=== PATIENT | male | born 1950 | race Caucasian/White ===

== ENCOUNTER 2019-12-13 21:13 | Inpatient (IN) | payer MEDICARE, SELFPAY ==
--- NOTE | 2019-12-13 21:18 | XR_ITS ---
WS: [id number] PORTABLE CHEST HISTORY: cp COMPARISON: None available. Moderate pulmonary hyperinflation. No pneumonia or vascular congestion. No pleural effusion or pneumo thorax. Cardiac size: Normal. Mediastinum/Aorta: Normal mediastinum. No osseous abnormality seen. XR/XR chest 1V portable [id number] IMPRESSION: Chronic emphysema. No pneumonia.
[2019-12-13 21:35] VITALS: BP 143/88; PULSE 77; RESP 16; TEMP 36.8; O2SAT 98; BMI 22.4
[2019-12-13 22:02] LABS: INR 0.94 (0.8-1.2)
[2019-12-13 22:03] LABS: Basophils # 0.1 10^3/uL (0.0-0.1); Eosinophils # 0.2 10^3/uL (0.0-0.8); Eosinophils % 1.9 %; Hematocrit 46.4 % (42.0-52.0); Hemoglobin 15.5 g/dL (11.7-16.6); Lymphocytes # 2.6 10^3/uL (0.8-4.8); Lymphocytes % 28.7 %; Mean Corpuscular HGB Conc 33.4 g/dL (30.0-36.0); Mean Corpuscular Volume 92.8 fL (80-94); Mean Platelet Volume 10.2 fL (7.4-10.4); Monocytes # 0.6 10^3/uL (0.2-0.9); Monocytes % 6.9 %; Neutrophils # 5.5 10^3/uL (1.8-7.7); Neutrophils % 61.2 %; Nucleated Red Blood Cells % 0 %; Platelet Count 240 10^3/cmm (130-400); Red Cell Distribution Width 12.7 % (12.1-15.1); White Blood Count 8.9 10^3/uL (4.0-10.0)
[2019-12-13 22:09] LABS: Alanine Aminotransferase 16 U/L (0-41); Albumin Level 4.6 g/dL (3.5-5.2); Alkaline Phosphatase 63 IU/L (40-130); Anion Gap 17.4 (5-19); Aspartate Amino Transferase 19 U/L (0-40); Blood Urea Nitrogen 20 mg/dL (8-23); Calcium 8.7 mg/dL (8.5-10.5); Carbon Dioxide 22 mmol/L (22-29); Chloride 101 mmol/L (98-107); Globulin 2.4 g/dL (1.3-4.6); Glomerular Filtration Rate 60.2 mL/min (90-130); Glucose 134 mg/dL (65-115); Osmolality Calculated 281 mOsm/kg (285-295); Potassium 4.4 mmol/L (3.5-5.1); Sodium 136 mmol/L (136-145); Total Bilirubin 0.2 mg/dL (0.15-1.2)
[2019-12-13 22:17] LABS: Troponin(5th) Baseline 25 ng/mL (0-15)
[2019-12-13 22:27] VITALS: BP 130/80; PULSE 76; RESP 14; O2SAT 97
--- NOTE | 2019-12-13 22:32 | W.ED.CHESTPA ---
HPI - Chest Pain General: Chief Complaint: Chest Pain Stated Complaint: cp Time Seen by Provider: 12/13/19 21:15 Source: patient Mode of arrival: ambulatory Limitations: no limitations History of Present Illness: HPI narrative: Patient comes in with occasional chest pain on and off for the last 2 to 3 weeks. Patient states at first the chest pain came on with exertion, but the last 2 days he has had chest pain at rest and at exertion. Patient has a history of high blood pressure and high cholesterol. Patient reports this evening his pain was worse and he needed to have it checked out. Patient stop smoking 2 months ago. Patient has no prior cardiac work-up. Review of Systems General: Reports: 10 or more systems reviewed and unremarkable except in HPI and below Card: Reports: chest pain PFSH ED PFSH: Social History Smoking and tobacco status: former smoker Physical Exam Const: COMMON NORMALS: no acute distress and patient oriented x3 GENERAL APPEARANCE: cooperative HENMT: COMMON NORMALS: normocephalic, TM's normal bilaterally and Normal external nose present HEAD & SCALP: normal to inspection and normocephalic NOSE: Normal external nose present TYMPANIC MEMBRANE: TM's normal bilaterally MOUTH: Normal oral and palatal mucosa present THROAT: posterior oropharynx normal Eye: GENERAL EYE: appearance normal, both eyes and all related structures Neck/C-Spine: COMMON NORMALS: full ROM Lymph: LYMPHATIC: no lymphadenopathy noted Chest: COMMONS NORMALS: normal inspection of the chest Resp: COMMON NORMALS: normal respiratory effort EFFORT & INSPECTION: Yes able to speak in complete sentences Cardio: COMMON NORMALS: regular rate and regular rhythm RATE: regular rate RHYTHM: regular rhythm GI: COMMON NORMALS: non-tender : COMMON NORMALS: Yes no CVA tenderness BLADDER/KIDNEY EXAM: Yes no CVA tenderness Back/Pelvis: COMMON NORMALS: no CVA tenderness and thoracic and lumbar spine normal to inspection Extremity: COMMON NORMALS: normal to inspection Neuro: COMMON NORMALS: patient oriented x3 and moves all extremities Psych: COMMON NORMALS: mental status grossly normal and cooperative Skin: COMMON NORMALS: no rashes or lesions noted GENERAL SKIN EXAM: no rashes or lesions noted Course ED course: 2350, second troponin went up to 30 from 25, patient does admit that he is pain-free at this time. History is concerning for CAD with worsening symptoms over the last [address] Osborn who agreed the patient probably needed to be admitted observation with cardiology follow-up and stress test. Vital Signs: Vital signs: Vital Signs Temperature 98.2 F 12/13/19 21:35 Pulse Rate 62 12/13/19 23:27 Respiratory Rate 15 12/13/19 23:27 Blood Pressure 110/74 12/13/19 23:27 Pulse Oximetry 97 12/13/19 23:27 MDM - Chest Pain MDM Narrative: Medical decision making narrative: Patient comes in today for complaints of increasing chest discomfort over the last 10 days. Patient has a history of hypertension, hyperlipidemia, and smoking. Patient takes routinely lisinopril and atorvastatin. Patient appears in mild to moderate pain. Patient was given 1 inch of Nitropaste, 281 mg aspirin, and 2 mg of morphine with resolution of pain. Laboratory values noted a increase in troponin at the 2-hour lori. Remainder of labs were within normal limit. Chest x-ray was normal. Patient's heart score was 6. Patient was concerned concern for deterioration of condition and needs admission for observation to cardiac stepdown unit. Dr. Gabriel was consulted for hospitalist admission. Dr. Osborn was consulted in the ER and agreed with plan. Lab Data: Labs: Lab Results 12/13/19 12/13/19 12/13/19 Range/Units 21:38 21:38 21:38 WBC 8.9 (4.0-10.0) 10^3/ uL RBC 5.00 (4.1-5.3) 10^6/u L Hgb 15.5 (11.7-16.6) g/dL Hct 46.4 (42.0-52.0) % MCV 92.8 (80-94) fL MCH 31.0 (28.0-34.0) pg MCHC 33.4 (30.0-36.0) g/dL RDW 12.7 (12.1-15.1) % Plt Count 240 (130-400) 10^3/c mm MPV 10.2 (7.4-10.4) fL Neut % (Auto) 61.2 % Lymph % (Auto) 28.7 % Archuleta % (Auto) 6.9 % Eos % (Auto) 1.9 % Baso % (Auto) 1.0 % Neut # (Auto) 5.5 (1.8-7.7) 10^3/u L Lymph # (Auto) 2.6 (0.8-4.8) 10^3/u L Archuleta # (Auto) 0.6 (0.2-0.9) 10^3/u L Eos # (Auto) 0.2 (0.0-0.8) 10^3/u L Baso # (Auto) 0.1 (0.0-0.1) 10^3/u L Nucleated RBC % (a uto) 0 % Nucleated RBCs # 0.0 /100WBC PT 12.90 (10.5-13.3) SECO NDS INR 0.94 (0.8-1.2) Sodium 136 (136-145) mmol/L Potassium 4.4 (3.5-5.1) mmol/L Chloride 101 (98-107) mmol/L Carbon Dioxide 22 (22-29) mmol/L Anion Gap 17.4 (5-19) BUN 20 (8-23) mg/dL Creatinine 1.2 (0.7-1.2) mg/dL GFR Calculation 60.2 L (90-130) mL/min Glucose 134 H (65-115) mg/dL Calculated Osmolal ity 281 L (285-295) mOsm/k g Calcium 8.7 (8.5-10.5) mg/dL Total Bilirubin 0.2 (0.15-1.2) mg/dL AST 19 (0-40) U/L ALT 16 (0-41) U/L Alkaline Phosphata se 63 (40-130) IU/L Troponin T Baselin e (0-15) ng/mL Troponin T 120 Min table mountain (0-15) ng/mL Delta Troponin T (0-10) ABS# Total Protein 7.0 (6.6-8.7) g/dL Albumin 4.6 (3.5-5.2) g/dL Globulin 2.4 (1.3-4.6) g/dL 12/13/19 12/13/19 Range/Units 21:38 23:26 WBC (4.0-10.0) 10^3/ uL RBC (4.1-5.3) 10^6/u L Hgb (11.7-16.6) g/dL Hct (42.0-52.0) % MCV (80-94) fL MCH (28.0-34.0) pg MCHC (30.0-36.0) g/dL RDW (12.1-15.1) % Plt Count (130-400) 10^3/c mm MPV (7.4-10.4) fL Neut % (Auto) % Lymph % (Auto) % Archuleta % (Auto) % Eos % (Auto) % Baso % (Auto) % Neut # (Auto) (1.8-7.7) 10^3/u L Lymph # (Auto) (0.8-4.8) 10^3/u L Archuleta # (Auto) (0.2-0.9) 10^3/u L Eos # (Auto) (0.0-0.8) 10^3/u L Baso # (Auto) (0.0-0.1) 10^3/u L Nucleated RBC % (a uto) % Nucleated RBCs # /100WBC PT (10.5-13.3) SECO NDS INR (0.8-1.2) Sodium (136-145) mmol/L Potassium (3.5-5.1) mmol/L Chloride (98-107) mmol/L Carbon Dioxide (22-29) mmol/L Anion Gap (5-19) BUN (8-23) mg/dL Creatinine (0.7-1.2) mg/dL GFR Calculation (90-130) mL/min Glucose (65-115) mg/dL Calculated Osmolal ity (285-295) mOsm/k g Calcium (8.5-10.5) mg/dL Total Bilirubin (0.15-1.2) mg/dL AST (0-40) U/L ALT (0-41) U/L Alkaline Phosphata se (40-130) IU/L Troponin T Baselin e 25 H (0-15) ng/mL Troponin T 120 Min table mountain 30.57 H (0-15) ng/mL Delta Troponin T 5.57 (0-10) ABS# Total Protein (6.6-8.7) g/dL Albumin (3.5-5.2) g/dL Globulin (1.3-4.6) g/dL EKG Data^: EKG 1: Attestation: I personally reviewed and interpreted this EKG as follows: (1038, sinus rhythm with a rate of 76 and regular. No ectopy, no ST elevation.) Discharge Plan Discharge Prescriptions: No Action atorvastatin 10 mg tablet RF: 0 lisinopril 10 mg tablet RF: 0 Coding Level of Care Code ED Talent Acquisition Specialist for Matt Fwd Exam Comprehensive
[2019-12-13] MEDS: ondansetron 2 mg/ML SDV 2 mL 4 MG IVP (22:42)
[2019-12-13] MEDS: morphine 4 mg/mL SDV 1 mL 2 MG IVP (22:42)
[2019-12-13] MEDS: nitroglycerin 1 gm/inch oint Pkt 1 INCH TOPICAL (22:42)
--- NOTE | 2019-12-13 23:19 | ECG_ITS ---
Measurements Intervals [place] Rate: 83 P: 61 HI: 232 QRS: 71 QRSD: 107 T: 79 QT: 374 QTc: 440 SINUS RHYTHM WITH FIRST DEGREE AV BLOCK SEPTAL MYOCARDIAL INFARCTION , PROBABLY OLD [40+ ms Q WAVE IN V1/V2] ST DEPRESSION, CONSIDER SUBENDOCARDIAL INJURY [0.1+ mV ST DEPRESSION] No previous ECG available for comparison Electronically Signed On 12-14-2019 13:08:07 CDT by Jordon Marin M.D. [id number]
[2019-12-13 23:27] VITALS: BP 110/74; PULSE 62; RESP 15; O2SAT 97
[2019-12-13 23:49] LABS: Troponin 5 2HR 30.57 ng/mL (0-15); Troponin 5 2HR Delta 5.57 ABS# (0-10)
[2019-12-14] VITALS (10 sets, daily range): BP systolic 104–147; BP diastolic 64–85; PULSE 60–90; RESP 16–20; TEMP 36.4–36.7; O2SAT 95–98
--- NOTE | 2019-12-14 00:32 | PC.NURSE ---
EKG done at 0030 and shown to ER physician
[2019-12-14] MEDS: atorvastatin 40 mg Tablet 80 MG PO ×2 (01:02→21:48)
[2019-12-14] MEDS: enoxaparin 80 mg/0.8 mL Syringe SUBCUT ×2 (01:02→17:35)
--- NOTE | 2019-12-14 01:25 | PC.NURSE ---
Called report to Glenna on med-surg
--- NOTE | 2019-12-14 02:17 | PM.HP ---
Providers/Chief Complaint Admitting Physician: Easton Pan Primary Care Provider: Danica Martinez DO Chief Complaint: cp History of Present Illness Rudolph Card is a 69 year old male with past medical history of hypertension and dyslipidemia who is presenting with substernal chest pain. He reports that the pain started about 2 weeks ago. It is intermittent. Triggered by physical activities. It became gradually more frequent. Last couple of days he experienced the pain even without exertion. It is moderate to severe intensity. Radiates to both upper extremities. Associated with diaphoresis. Denies palpitations or shortness of breath. Denies similar episodes in the past. Nitroglycerin in the emergency room provided significant relief of the pain. EKG shows inferolateral T wave inversion. Sinus rhythm. Troponin was mildly elevated. Currently the pain has resolved. Review of Systems General: Reports: 10 or more systems reviewed and unremarkable except in HPI and below Medications/Allergies Home Medications Medication Instructions Recorded Confirmed Last Taken Type atorvastatin 12/13/19 Unknown History lisinopril 12/13/19 Unknown History Allergies Allergy/AdvReac Type Severity Reaction Status Date / Time No Known Allergies Allergy Verified 12/13/19 21:43 PFSH Acute PFSH: Social History Smoking and tobacco status: former smoker Vitals/I&O/Wt Last Vital Signs Temp 98.0 F 12/14/19 02:00 Pulse 70 12/14/19 02:08 Resp 16 12/14/19 02:08 BP 130/78 12/14/19 02:08 Pulse Ox 98 12/14/19 02:08 Weight last 48 hrs Weight 74.843 kg Physical Exam Narrative: EXAM NARRATIVE: Awake alert oriented x3. No acute distress. Mood and affect are appropriate. Skin is warm and dry. Moist mucous membranes. Normal speech. No facial asymmetry. Eyes PERRLA, extraocular muscles intact. Neck supple. No JVD Lungs clear bilaterally. No respiratory distress Heart S1, S2, regular Abdomen soft, nontender, bowel sounds are present No edema cyanosis or calf tenderness bilaterally in extremities. Neuro examination is nonfocal. Data : 12/13/19 21:38 12/13/19 21:38 Other Labs: Chest x-ray. Based on my interpretation no acute cardiopulmonary abnormalities. Please see official radiology report when it is available. A&P Additional A&P Information 69-year-old male with past medical history of dyslipidemia and hypertension who is presenting with chest pain. The findings are consistent with acute coronary syndrome/unstable angina. The pain resolved with nitroglycerin. The patient received Lovenox and aspirin in the emergency room. His heart rate is on the lower side. This is the reason I am not giving him beta-deborah. He also received full dose of Lipitor. We will continue monitoring him on telemetry. We will monitor troponin level. Please consult cardiology in the morning. Probably he needs to go to cardiac lab. Hypertension. Currently well controlled. We will add as needed hydralazine. Possible chronic kidney disease stage II. We will hydrate him gently before possible cardiac catheterization. We will monitor his renal function. Dyslipidemia. Given Lipitor 80. Will check fasting lipids in the morning. DVT prophylaxis. Received full dose of Lovenox in the ER. Teds and SCDs. CODE STATUS. The patient wants to be full code. The plan of care was discussed with the patient. He verbalized understanding and agreement. Attestations Medical Necessity Statement*: Observation Coding Level of Care Code Acute Child Welfare Caseworker for Matt Bryant
[2019-12-14] MEDS: sodium chloride 0.9% 1,000 ML 60 ML IV (02:39)
--- NOTE | 2019-12-14 03:19 | ECG_ITS ---
Measurements Intervals [place] Rate: 68 P: 70 CO: 138 QRS: 58 QRSD: 92 T: -32 QT: 422 QTc: 452 SINUS RHYTHM POSSIBLE LATERAL MYOCARDIAL INFARCTION , OF INDETERMINATE AGE [30 ms Q WAVE IN I/aVL/V5/V6] PROBABLE INFERIOR MYOCARDIAL INFARCTION , OF INDETERMINATE AGE WITH POSTERIOR EXTENSION [35 ms Q WAVE IN II/aVFPROMINENT R WAV No previous ECG available for comparison Electronically Signed On 12-14-2019 13:08:14 CDT by Jordon Marin M.D. [id number]
[2019-12-14 04:48] LABS: Estmated Average Glucose 134; Hemoglobin A1C 6.3 % (4.0-6.0)
[2019-12-14 04:59] LABS: Magnesium 2.2 mg/dL (1.7-2.3); Phosphorus 3.7 mg/dL (2.5-4.5); Troponin 5 6HR 32.32 ng/mL (0-15); Troponin 5 6HR Delta 7.32 ng/L (0-12)
[2019-12-14 05:00] LABS: Chol HDL Ratio 3.63 mg/dL (1.0-5.00); Cholesterol 178 mg/dL (0-200); HDL Cholesterol 49 mg/dL (60-100); LDL Cholesterol Calculated 105 mg/dL (50-129); LDL HDL Ratio 2.14 RATIO (0.00-3.22); Triglycerides 122 mg/dL (0-150)
--- NOTE | 2019-12-14 07:54 | NMCV_ITS ---
NM lv perf SPECT r/s* [id number] Rudolph Card Age: 69 Gender: M : 1950 Exam Date: 12/14/2019 10:23 Ordering Phys: Liza Leyva MD Technologist: BEATRICE Patel Exam Location: [facility] Indications: Chest pain STRESS TEST Please [facility] IMAGE PROTOCOL Rest/Stress 1 Lexiscan Day Radiopharmaceutical Dose (mCi) Administration Site Administered by Rest: Tc-99m 10.5 IV BEATRICE Patel Sestamibi Stress:Tc-99m 32.0 IV BEATRICE Patel Sestamibi Rest: 14-Dec-2019 60 Discovery 630 Stress: 14-Dec-2019 45 Discovery 630 0.4mg Lexiscan. Images obtained in supine and prone position. SPECT RESULTS Technical Quality: Good Raw Data Analysis: Subdiaphragmatic activity Image Corrections: No attenuation or motion correction applied Summed Stress Score: 37 Summed Rest Score: 22 Summed Difference Score: 16 PERFUSION FINDINGS Large area of severely decreased tracer uptake was noted in the inferior, inferolateral, anterolateral and all the apical segments. Moderate area decreased tracer uptake was noted in the mid anteroseptal and inferoseptal segments. Significant areas of reversibility was noted in all the segments. FUNCTIONAL RESULTS (calculated via Gated SPECT) Stress Image LV EF (%): 30 Stress EDV (mL):152 TID: 1.38 Stress ESV (mL):107 FUNCTIONAL FINDINGS: Segmental wall motion analysis revealed diffuse hypokinesia of the left ventricle. IMPRESSIONS 1. Myocardial perfusion imaging revealing large areas of severely decreased tracer uptake with significant reversibility, suggestive of ischemia in the distribution of all the 3 coronary arteries. 2. Diminished LV ejection fraction of 30%. 3. Multiple wall motion abnormalities as mentioned above 4. Moderately dilated LV cavity with an end systolic volume of 107 mL 5. Elevated transient ischemic dilatation ratio also is suggestive of endocardial ischemia Dr. Leyva was informed about these findings Dr Pedro Luis Hodges MD [facility] (Electronically Signed) Final Date: 14 Dec 2019 14:26 S
--- NOTE | 2019-12-14 07:54 | ECG_ITS ---
NAME OF STUDY: LEXISCAN SESTAMIBI STRESS TEST INDICATION: Chest Pain suspicious for Unstable Angina PROCEDURE: At the baseline, the blood pressure was 153/83 mmHg, oxygen saturation 99% with a heart rate of 77 bpm. The electrocardiogram showed normal sinus rhythm, normal axis with nonspecific ST-T wave abnormality in lead III, aVF, V4 to V6. The Lexiscan was infused over a period of 20 seconds. A total of 0.4 milligrams of Lexiscan was infused. The stress phase was continued for a total of 5 minutes. Heart rate at the end of the stress phase was 97 bpm, oxygen saturation 99% with a blood pressure 151/81 mmHg. The EKG at the peak infusion revealed sinus rhythm. T wave is noted to be upright during infusion and at peak stress. Sestamibi was injected 20 seconds after the Lexiscan infusion. Blood pressure at the end of the recovery phase was 147/83 mmHg, oxygen saturation 99% with a heart rate of 87 beats per minute. CONCLUSION: 1. No significant EKG changes with the LexiScan infusion. 2. No LexiScan induced chest pain or cardiac arrhythmia. 3. Normal blood pressure and heart rate response. 4. Sestamibi/sestamibi perfusion scan pending; see separate report. Electronically Signed On 12-14-2019 15:55:20 CDT by Georgiana Alejandro M.D. [id number]
--- NOTE | 2019-12-14 09:41 | PC.CHAP ---
Pastoral Care Encounter/Spiritual Assessment Type of Contact [] Declined publications production supervisor visit [] Patient/Family/Request visit [] Outpatient visit [] Follow-up visit [] Physician referral [] Code/Alert [x] Routine visit [] Staff referral [] Actively dying [] Patient sleeping [] Family support [] [] Out of room [] Palliative care [] [] Receiving care in room [] Pre-surgical visit [] Trauma [] Long length of stay [] ICU visit [] Other: Relational/Emotional Strength [] Patient feels connected with others/family/visitors/staff [] Distress [] Loneliness/isolation [] Abandonment Spirituality of Patient [] Person of Sunitha [] Attends Confucianism of their Sunitha [] Believes in Prayer [] Reads Bible or Restoration materials [] There are Spiritual issues to be addressed Valve Tester Interventions [x] Prayer [] Active listening [] Non-anxious presence [] Spiritual/emotional support [] Crisis/trauma care [] Spiritual counseling [] Bereavement support [] Provided bereavement packet [] Provided Bible/devotional materials [] Provided toy/stuffed animal, coloring book to patient or family member [] Provided Communion [] Anointing/[place] [] Salvation [x] Completed spiritual assessment [] Other: Impact on Illness or Injury [] Angry [] Fearful [] Anxious [] Often cries [] Exhaustion [] Unable to work [] Unable to attend judaism [] Unable to walk/stand [] Unable to read [] Unable to drive [] Unable to eat/drink [] Unable to sleep [] Unable to be with family [] Patient intubated [] Other: Summary Patient resting well.. Time spent with patient 5 min
--- NOTE | 2019-12-14 11:25 | SUR.PREOP ---
Patient reports no pain or discomfort prior to the start of the test.d
[2019-12-14] MEDS: regadenoson 0.4 Mg/5 ml Syringe IVP (11:31)
--- NOTE | 2019-12-14 14:34 | P.PN_ITS ---
Subjective Subjective: Interval history: Patient underwent stress testing this morning. Dr. Hodges called me. Test reveals evidence of three-vessel disease. Vitals/I&O/Wt Last Vital Signs Temp 97.5 F L 12/14/19 07:13 Pulse 90 12/14/19 11:35 Resp 18 12/14/19 07:13 BP 147/83 12/14/19 11:35 Pulse Ox 96 12/14/19 07:13 12/13/19 12/14/19 12/14/19 22:59 06:59 14:59 Intake Total 1200 / 1200 Output Total 475 / 475 500 / 500 Balance -475 / -475 700 / 700 Weight last 48 hrs Weight 74.843 kg Physical Exam Const: OTHER: Alert and oriented x3 HENMT: OTHER: Normocephalic Eye: OTHER: Extraocular movements intact Chest: OTHER: Pectus excavatum Resp: OTHER: Clear to auscultation bilaterally Cardio: OTHER: Regular rate and rhythm GI: OTHER: Soft, nontender, positive bowel sounds Extremity: OTHER: No edema Skin: OTHER: Dry, no rashes noted Data : 12/13/19 21:38 12/13/19 21:38 A&P Assessment and plan (1) Unstable angina: Status: Acute (2) Positive cardiac stress test: Status: Acute (3) Hypertension: Status: Acute Qualifiers: Hypertension type: essential hypertension Qualified Code(s): I10 - Essential (primary) hypertension (4) Dyslipidemia: low hdl Status: Acute (5) Elevated hemoglobin A1c: Status: Acute Additional A&P Information Change to inpatient status Discussed with Dr. Alejandro and plan is for cardiac catheterization in the morning And has been started on Statin therapy, beta-blockade, aspirin and nitroglycerin paste On treatment dose Lovenox Will hold off on initiating any hypoglycemic agents presently though will need to consider Add SCDs Reviewed plans with patient. He understands findings of stress test and concerns for possible coronary artery disease. Has no questions presently. Full code Attestations Medical Necessity Statement*: With positive stress test will change to inpatient as stay will exceed 2 midnights Coding Level of Care Code Acute Activities Director Scouting for [facility] Fwd Diagnoses Unstable angina I20.0 Positive cardiac stress test R94.39 Hypertension I10 Hypertension type: essential hypertension Dyslipidemia E78.5 Elevated hemoglobin A1c R73.09
--- NOTE | 2019-12-14 15:56 | P.CONIM_ITS ---
Providers/Reason For Consult Consulting Physican/Specialty*: Dr. Alejandro, cardiology Reason for Consult*: Chest pain and abnormal stress test Attending Physician: Liza Leyva MD Primary Care Provider: Danica Martinez DO History of Present Illness History of Present Illness Rudolph Card is a 69 year old male with past medical history of hypertension, dyslipidemia and former smoker smoker (half pack per day since the age of 19 years states quit smoking to 3 months back) presented for evaluation of chest discomfort on and off for past 1 to 2 weeks. He was in his usual state of health until about 2 weeks back when he started having retrosternal chest pressure while working in his yard that lasted for few minutes and got relieved with resting. Over the past week he noticed the intensity of pain getting worse and it was associated with sweating. 2 nights in in a row patient experienced retrosternal chest discomfort described as heaviness and pressure-like sensation 7-8 over 10 in intensity with radiation to bilateral arm and associated with shortness of breath and sweating. The first night the pain resolved after he took some Prilosec. Yesterday night pain lasted about 10 minutes but it came back again and that is when patient decided to come to the ER for further evaluation. His baseline troponin was 25, 120-minute troponin T was 31 and 6 are troponin I was 32. Total cholesterol 178, calculated LDL 105, HDL 49 and triglyceride 132. His creatinine on arrival was 1.2 hemoglobin A1c of 6.3 normal electrolytes and liver function. Chest x-ray showed changes consistent with chronic emphysema otherwise no acute abnormality. He underwent stress test this morning that was abnormal and hence I have been asked to evaluate and assist in further management of this patient. Review of Systems Const: Denies: fever(s), chills or night sweats Eyes: Denies: change in vision ENMT: Denies: nasal congestion or epistaxis Card: Reports: chest pain; Denies: irregular heart rhythm, swelling of feet/ankles, lightheadedness, syncope, dyspnea on exertion, orthopnea or acrocyanosis Resp: Reports: dyspnea; Denies: productive cough, non-productive cough or hemoptysis GI: Denies: abdominal pain, nausea, vomiting, change in bowel habits, h ematochezia or melena : Denies: difficulty urinating or hematuria Musc: Denies: extremity swelling Skin/Breast: Denies: rash Neuro: Reports: headache(s); Denies: weakness in extremities or frequent falls Psych: Denies: anxiety or depression Endo: Denies: tired all the time or change in body appearance Matt/Lymph: Denies: petechiae or purpura All/Imm: Denies: throat swelling or tongue swelling Meds/Allergies Home Medications and Allergies Home Medications Medication Instructions Recorded Confirmed Last Taken Type atorvastatin 10 mg PO BEDTIME 12/13/19 12/14/19 12/13/19 20:00 History lisinopril 10 mg PO BEDTIME 12/13/19 12/14/19 12/13/19 20:00 History Allergies Allergy/AdvReac Type Severity Reaction Status Date / Time No Known Allergies Allergy Verified 12/13/19 21:43 Current Medications Current Medications Generic Name Dose Route Start Last Admin Trade Name Freq PRN Reason Stop Dose Admin Sodium Chloride 1,000 mls @ 60 mls/hr 12/14/19 02:15 12/14/19 02:39 Sodium Chloride 0.9% IV 60 mls/hr .[id number] CUCA Administration PFSH Acute PFSH: Medical History Dyslipidemia Hypertension Social History Smoking and tobacco status: former smoker Vitals/I&O/Wt Last Vital Signs Temp 97.5 F L 12/14/19 07:13 Pulse 90 12/14/19 11:35 Resp 18 12/14/19 07:13 BP 147/83 12/14/19 11:35 Pulse Ox 96 12/14/19 07:13 12/14/19 12/14/19 12/14/19 06:59 14:59 22:59 Intake Total 1200 / 1200 Output Total 475 / 475 500 / 500 Balance -475 / -475 700 / 700 Weight last 48 hrs Weight 165 lb Physical Exam Const: COMMON NORMALS: no acute distress, average body habitus, patient oriented x3, alert and well nourished GENERAL APPEARANCE: cooperative, comfortable, well kempt and well developed ORIENTATION/CONSCIOUSNESS: Yes oriented to person, Yes oriented to place and Yes oriented to time HENMT: COMMON NORMALS: normocephalic, atraumatic, hearing grossly normal bilaterally, external ears normal, Normal external nose present and moist oral mucous membranes HEAD & SCALP: normocephalic and atraumatic FACE & SINUS: face symmetric NOSE: Normal external nose present EXTERNAL EAR: Yes external ears normal Eye: COMMON NORMALS: Equal, round and reactive pupils present, EOMs intact bilaterally and conjunctivae normal CONJUNCTIVA: Yes conjunctivae normal SCLERA: sclerae normal PUPIL: Yes Equal, round and reactive pupils present Neck/C-Spine: COMMON NORMALS: no lymphadenopathy, supple and no JVD; negative for No carotid bruits Resp: COMMON NORMALS: normal respiratory effort, No use of accessory muscles and clear to auscultation bilaterally AUSCULTATION: clear to auscultation bilaterally, no crackles, no rales, no rhonchi and no wheezes Cardio: COMMON NORMALS: no JVD, regular rate, regular rhythm, S1 normal heart sound present, S2 normal heart sound present and Peripheral pulses 2+ throughout; negative for No gallops present (Cardio) and negative for No clicks present (Cardio) JUGULAR VENOUS DISTENTION: no JVD PALPATION: normal PMI, no heave, no palpable S3 and no palpable S4 RATE: regular rate RHYTHM: regular rhythm HEART SOUNDS: S1 normal heart sound present, S2 normal heart sound present, no click, no gallops and no murmurs BRUITS: no carotid bruits PERIPHERAL PULSES: Peripheral pulses 2+ throughout GI: COMMON NORMALS: Normal to inspection, nondistended, normoactive bowel sounds present, Soft to palpation and non-tender PALPATION: Yes Soft to palpation RECTAL EXAM: Yes deferred Extremity: COMMON NORMALS: normal to inspection, no clubbing, cyanosis or edema and no calf tenderness Neuro: COMMON NORMALS: patient oriented x3 and no focal motor deficits SENSORIUM/ORIENTATION: Yes alert, Yes oriented to person, Yes oriented to place and Yes oriented to time Psych: COMMON NORMALS: Normal thought process present APPEARANCE: Yes well kempt MOOD & AFFECT: Yes euthymic mood THOUGHT PROCESS: Normal thought process present THOUGHT CONTENT: Yes Normal thought content present ATTENTION/CONCENTRATION: Yes attention grossly intact MEMORY/COGNITION: Yes memory grossly intact INSIGHT: Good insight present (Psych) JUDGEMENT: Good judgement present (Psych) Data Imaging^: Kurtisiscan sestamibi MPI (12/14/19): I personally reviewed and interpreted this imaging study as follows: My impression: IMPRESSIONS 1. Myocardial perfusion imaging revealing large areas of severely decreased tracer uptake with significant reversibility, suggestive of ischemia in the distribution of all the 3 coronary arteries. 2. Diminished LV ejection fraction of 30%. 3. Multiple wall motion abnormalities as mentioned above 4. Moderately dilated LV cavity with an end systolic volume of 107 mL 5. Elevated transient ischemic dilatation ratio also is suggestive of endocardial ischemia A&P Assessment and plan (1) Unstable angina: Continue aspirin, statin, NTG patch. Start on low-dose beta-deborah. - Lovenox another dose this evening and plan for coronary angiogram tomorrow morning. -I will hold off on loading with P2Y12 inhibitor given markedly abnormal stress test. -Case was discussed with Dr. Bill and plan is to proceed with procedure tomorrow morning. Status: Acute (2) Positive cardiac stress test: Myocardial perfusion imaging with severely decreased tracer uptake in inferior inferolateral, anterolateral, mid anteroseptal inferoseptal and all apical segments. Transient ischemic dilation of 1.38 and left ventricular ejection fraction of 30%. Diffuse hypokinesis of left ventricle. - Status: Acute (3) Hypertension: Status: Acute Qualifiers: Hypertension type: essential hypertension Qualified Code(s): I10 - Essential (primary) hypertension (4) Dyslipidemia: Status: Acute Additional A&P Information Ischemic cardiomyopathy with left ankle ejection fraction of 30% elevated hemoglobin A1c Former smoker Thank you for allowing me to participate in patient's care. Please feel free to call with questions or concerns. Coding Level of Care Code Acute Post Closing Specialist for Matt Bryant Diagnoses Unstable angina I20.0 Positive cardiac stress test R94.39 Hypertension I10 Hypertension type: essential hypertension Dyslipidemia E78.5
[2019-12-14] MEDS: acetaminophen 325 mg Tablet 650 MG PO (16:58)
[2019-12-14] MEDS: sodium chloride 0.9% 1,000 ML 50 ML IV ×2 (17:00→22:21)
[2019-12-14] MEDS: nitroglycerin 1 gm/inch oint Pkt 1 INCH TOPICAL (17:35)
[2019-12-14] MEDS: metoprolol tartrate 25 mg Tablet 12.5 MG PO (17:35)
--- NOTE | 2019-12-14 19:14 | PC.NURSE ---
Called report to mikki in CSU.
--- NOTE | 2019-12-14 19:37 | PC.NURSE ---
12/14/191936 Pt transferred by wheel chair with personal belongings to CSU by HWOIE Camarillo at 1935.
[2019-12-15] VITALS (33 sets, daily range): BP systolic 100–152; BP diastolic 65–94; PULSE 61–85; RESP 10–21; TEMP 36.7–36.8; O2SAT 92–97
[2019-12-15] MEDS: nitroglycerin 1 gm/inch oint Pkt 1 INCH TOPICAL ×3 (00:11→17:36)
[2019-12-15] MEDS: acetaminophen 325 mg Tablet 650 MG PO (00:11)
[2019-12-15 05:14] LABS: Basophils # 0.1 10^3/uL (0.0-0.1); Basophils % 1.1 %; Eosinophils # 0.2 10^3/uL (0.0-0.8); Eosinophils % 1.9 %; Hematocrit 43.4 % (42.0-52.0); Hemoglobin 14.6 g/dL (11.7-16.6); Lymphocytes # 3.6 10^3/uL (0.8-4.8); Lymphocytes % 37.6 %; Mean Corpuscular HGB Conc 33.6 g/dL (30.0-36.0); Mean Corpuscular Hemoglobin 31.3 pg (28.0-34.0); Mean Corpuscular Volume 93.1 fL (80-94); Mean Platelet Volume 10.3 fL (7.4-10.4); Monocytes # 0.6 10^3/uL (0.2-0.9); Monocytes % 6.7 %; Neutrophils % 52.5 %; Nucleated Red Blood Cells % 0 %; Platelet Count 220 10^3/cmm (130-400); Red Blood Count 4.66 10^6/uL (4.1-5.3); Red Cell Distribution Width 12.8 % (12.1-15.1); White Blood Count 9.5 10^3/uL (4.0-10.0)
[2019-12-15 05:18] LABS: Anion Gap 14.5 (5-19); Blood Urea Nitrogen 16 mg/dL (8-23); Calcium 9.3 mg/dL (8.5-10.5); Carbon Dioxide 25 mmol/L (22-29); Chloride 105 mmol/L (98-107); Glomerular Filtration Rate 83.9 mL/min (90-130); Glucose 102 mg/dL (65-115); Osmolality Calculated 287 mOsm/kg (285-295); Potassium 4.5 mmol/L (3.5-5.1); Sodium 140 mmol/L (136-145)
[2019-12-15] MEDS: diphenhydrAMINE 50 mg Capsule PO (08:46)
[2019-12-15] MEDS: aspirin 81 mg Chew Tablet 324 MG PO (08:48)
--- NOTE | 2019-12-15 08:50 | PC.NURSE ---
BP 114/82, Dr. Bill notified of BP. Physician stated to hold morning dose of metoprolol. RBVO.
--- NOTE | 2019-12-15 09:50 | XACV_ITS ---
Exam Room: [facility] Ht: 183 cm Wt: 75 kg BSA: 1.95 m2 Gender: Male : 1950 Any Known Allergies: No known allergies Exam Priority: Routine Indication(s): - Abnormal stress perfusion study - Elevated TID ration by MPI Procedure(s): Procedure Description: Diagnostic procedure Procedure Description: Left Heart Catheterization Procedure Description: Coronary Angiography Diagnostic Cath Status: Elective Diagnostic Findings LM: Severe 95% stenosis, KYA: 2 flow. pLAD to mLAD: Severe 100% stenosis, KYA: 0 flow. pCIRC: Severe 95% stenosis, KYA: 2 flow. pRCA to dRCA: Severe 100% stenosis, chronic total occlusion, KYA: 0 flow, high/c lesion. Lat 2nd OM to 2nd SP collateralization. Lat 1st OM to 2nd SP collateralization. pRCA to RPAV collateralization. Coronary angiography shows right dominance. PCI Status: Elective Conclusions There is severe coronary artery disease with four vessel disease. 1. Left main is short with proximal 95% highly calcified lesion with KYA II flow#2 Ostial to mid LAD 100% chronically occluded fills through left to left collaterals from obtuse marginal #3 Diagonal 1 and his ostium 99% subtotally occluded it is small caliber but medium-sized vessel.#4 Ostial left circumflex which is nondominant vessel has highly calcified 99% subtotal occlusion#5 RCA is a dominant vessel in proximal to distal segment it is 100% chronically occluded fills from right to right collaterals into PDA.Due to severe dampening and recurrence of chest pain LV gram was not performed. There was no gradient across aortic valve.LVEDP was moderately elevated . Recommendations 1-Return to CSU for close monitoring and routine PCI care 2-Continue anticoagulation 3-Statin with LDL goal of 70 mg/dl, aspirin 81 mg p.o. daily for life long 4-CT surgery consults for CABG 5-Optimal medical management for angina 6-Follow up with Dr. Alejandro in four weeks and establish care with primary care physician . Diagnostic RX Recommendation: CABG Pressures Phase:Rest AO : 117 mmHg / 74 mmHg ( 93 mmHg ) @ 6:18:00 AM 105 mmHg / 75 mmHg ( 90 mmHg ) @ 6:24:00 AM 117 mmHg / 57 mmHg ( 81 mmHg ) @ 6:28:00 AM 71 mmHg / 51 mmHg ( 54 mmHg ) @ 6:29:00 AM 56 mmHg / 43 mmHg ( 40 mmHg ) @ 6:29:00 AM 122 mmHg / 94 mmHg ( 106 mmHg ) @ 6:35:00 AM 123 mmHg / 95 mmHg ( 107 mmHg ) @ 6:35:00 AM 97 mmHg / 51 mmHg ( 32 mmHg ) @ 6:35:00 AM LV : 130 mmHg / 22 mmHg / @ 6:34:00 AM 126 mmHg / 20 mmHg / @ 6:35:00 AM Valves Phase:DefaultPhase AV : 6.0 mmHg @ 11:44:37 AM AV Mean Gradient: 11.0 mmHg @ 11:44:37 AM Clinical Evaluation EBL: 5mL-10mL Procedural Details Procedure Consent Obtained. Admit Source: In Patient. Current Diagnosis : Unstable angina. Pre-Procedure Time Out. Identified patient by full name and date of as verbalized by the patient/guarantor. Does the consent match the physician's order: Yes. Accurate & Complete Informed Consent: Yes. Inpatient/Outpatient History & Physical on Chart: Yes. If H&P is completed, is and addenduem needed: Yes; If yes, is the addendum complete: N/A. Visualize and Verify Site with Patient/Guarantor: N/A. Relevant Radiology Images available: N/A. The risks, benefits, and alternatives of sedation and/or procedure were discussed by physician. The patient agrees to continue. Procedure started. Correct patient, site and procedure confirmed by cath team. Current diagnosis: Chest Pain. PERRLA. Strong, equal hand demand generator manager bilaterally. Lungs clear x 5 lobes. IV Site on Arrival: 18 gauge in the right anticubital. IV Fluids: 0.9% NaCl at KVO. 50 mL infused prior to wetlands conservation laborer. Pre Procedural Pulses: bilateral dorsalis pedis was 2+. Pre Procedural Pulses: bilateral posterior tibial was 2+. Pre Procedural Pulses: right radial was 2+. Oxygen started at 2liters/min via nasal canula. bilateral groins was prepped with chloroprep then draped in the usual sterile fashion. right radial was prepped with chloroprep then draped in the usual sterile fashion. Physician notified. Baseline sample Acquired. HR: 72 BPM. Patient's family unavailable. Equipment: 6F - Radial. Immediate Pre-Procedure Time Out. Correct Patient: Yes; Correct Procedure: Yes; Correct Site: Yes; Correct Patient Position: Yes; Correct Supplies: Yes; Dried Flammable Prep: Yes; Blood Products Available: N/A;. [facility] Clinical Fraility Score: 2: Well. Hot Dipper Indications: New Onset Angina. Chest Pain Symptom Assessment: Non-anginal Chest Pain. Cardiovascular Instability: No,. Patient medications: Aspirin 162mg, Beta deborha 12.5mg, Lovenox 80mg. patient has no known drug allergies. Physician arrived. Physician scrubbed in. Lidocaine 1% infiltrated to the right radial. Arterial access obtained. A 6 taiwanese TIG catheter in over wire. Catheter inserted over the exchange wire. Multiple views taken of left coronary artery. Catheter redirected to the RCA. Multiple views taken of right coronary artery. Catheter out. A 6 taiwanese Ryne catheter in over wire. A 6 taiwanese Angled Pig catheter in over wire. LV gram performed in JOHNSON @ 10 mL/second for a total of 30 mL. EDP Sample taken: LV 130/22,41; HR: 112 BPM; SpO2: 97%. Pullback taken: LV 126/20,39; AO 122/94(106); Mean: 11mmHg, Peak to Peak: 6mmHg, SEP: 19sec/min; HR: 112 BPM; SpO2: 97%. TR band placed. Hemostasis obtained. Post Procedure: Pulses reassessed and unchanged. PERRLA. Strong, equal hand demand generator manager bilaterally. No VTE prophylaxis required. Medication's Wasted: Lidocaine 1% = 18 mL. Medication's Wasted: Heparin = 1000 Units. Medication's Wasted: Other = 1 mg. Medication's Wasted: Nitro = 49.6 mg. Total IV fluids: 150 mL. Fluoro: 5:06. Contrast type used: Omnipaque 300 mgI/mL, 500 mL bottle. [id number]. Post-op diagnosis: multi vessel coroanry artery disease. Complications: none. Estimated blood loss: 5mL-10mL. Procedure completed. Patient transferred by wheelchair to 1st floor. Site: Right Radial artery Sheath Size: 6 Fr Hemostasis Success: Unsuccessful Procedure Medications Start: 10:37 AM Stop: 10:37 AM Medication: Fentanyl Amount: 50 mcg Route: I.V. Start: 11:01 AM Stop: 11:01 AM Medication: Fentanyl Amount: 50 mcg Route: I.V. Start: 11:07 AM Stop: 11:07 AM Medication: Versed Amount: 1 mg Route: I.V. Start: 11:15 AM Stop: 11:15 AM Medication: Nitrogylcerin Amount: 200 mcg Route: I.A. Start: 11:21 AM Stop: 11:21 AM Medication: Heparin Amount: 5000 units Route: I.V. Start: 11:35 AM Stop: 11:35 AM Medication: Nitrogylcerin Amount: 200 mcg Route: I.C. Start: 11:37 AM Stop: 11:37 AM Medication: Nitrogylcerin Amount: 200 mcg Route: I.A. Start: 11:39 AM Stop: 11:39 AM Medication: Morphine Amount: 2 mg Route: I.V. I, the attending physician, have reviewed and verified all procedure medications. Yes, all medications given per verbal order History/Risk Factors Hypertension: Yes Dyslipidemia: Yes Peripheral Arterial Disease (PAD): No Myocardial Infarction (NE): No Obesity: No Renal Disease: No Tobacco Use: Former Prior Interventions PCI: No CABG: No Valve Surgery: No Report Signatures Finalized by:Marie Bill MD on 12/15/2019 3:05:03 PM
--- NOTE | 2019-12-15 13:36 | USCV_ITS ---
Rudolph Card Age: 69 Gender: M : 1950 Exam Date: 12/15/2019 14:33 Ordering Phys: Georgiana Aeljandro MD ([email or web address]) Technologist: Kerry Nguyen [place] [facility] [place]: Unstable angina, multivessel CAD BP: / HR: Rhythm: Sinus Technical Quality: Fair MEASUREMENTS (Male / Female) Normal Values 2D ECHO LV Diastolic Diameter PLAX 4.3 cm 4.2 - 5.9 / 3.9 - 5.3 cm LV Systolic Diameter PLAX 2.9 cm LV Chamber Size 3.9 cm IVS Diastolic Thickness 1.5 cm 0.6 - 1.0 / 0.6 - 0.9 cm IVS Systolic Thickness 2.2 cm LVPW Diastolic Thickness 1.1 cm 0.6 - 1.0 / 0.6 - 0.9 cm LVPW Systolic Thickness 1.5 cm RV Chamber Size 2.7 cm LVOT Diameter 2.0 cm LV Ejection Fraction 2D Teich 59.9 % LV Ejection Fraction MOD 2C 64.8 % LV Ejection Fraction 2C AL 67.2 % LA Diameter 3.0 cm LA Width 2.9 cm LA Height 4.7 cm RA Width 2.1 cm RA Height 3.5 cm Aorta at Sinotubular Diameter 2.4 cm M-MODE LV Diastolic Diameter MM 5.6 cm 4.2 - 5.9 / 3.9 - 5.3 cm LV Systolic Diameter MM 4.7 cm LV Ejection Fraction MM Teich 32.2 % IVS Diastolic Thickness MM 1.0 cm 0.6 - 1.0 / 0.6 - 0.9 cm IVS Systolic Thickness MM 1.0 cm LVPW Diastolic Thickness MM 0.9 cm 0.6 - 1.0 / 0.6 - 0.9 cm LVPW Systolic Thickness MM 1.2 cm Aortic Annulus Diameter 3.9 cm LA Ao Ratio MM 0.8 MV E Point Septal Separation 0.3 cm DOPPLER AV Peak Velocity 98.0 cm/s LVOT Peak Velocity 79.0 cm/s AV Area Cont Eq vti 2.6 cm squared AV Area Cont Eq pk 2.6 cm squared MV Area PHT 2.3 cm squared Mitral E to A Ratio 0.7 MV E' Velocity 5.0 cm/s Mitral E to MV E' Ratio 10.4 Mitral E to LV E' Lateral Ratio 10.9 Mitral E to LV E' Septal Ratio 10.3 TR Peak Velocity 295.0 cm/s TR Peak Gradient 34.8 mmHg TV Peak E Velocity 33.0 cm/s PV Peak Velocity 48.0 cm/s RV Acceleration Time 0.1 s RV Ejection Time 0.3 s RV AcT/ET 0.3 FINDINGS Left Ventricle Normal left ventricular cavity size. Normal left ventricular wall thickness. Normal left ventricular systolic function. Left ventricular ejection fraction is estimated at 64%. There is mild hypokinesis of basal to mid inferolateral and apical lateral horner. Grade I diastolic dysfunction (abnormal relaxation filling pattern), normal to mildly elevated filling pressures. Right Ventricle Normal right ventricular size and systolic function. Right ventricular systolic pressure 29 mmHg. Right Atrium Normal right atrial size. Left Atrium Normal left atrial size. Mitral Valve Mildly thickened mitral valve. No mitral valve stenosis. Trace mitral valve regurgitation. Aortic Valve Aortic valve not well visualized. No aortic valve stenosis. No aortic valve regurgitation. Tricuspid Valve Structurally normal tricuspid valve. Trace tricuspid valve regurgitation. Pulmonic Valve Pulmonic valve not well visualized. No pulmonary valve stenosis. Trace pulmonary valve regurgitation. Pericardium No pericardial effusion. Aorta Normal size aortic root and proximal ascending aorta. CONCLUSIONS 1. Normal left ventricular cavity size.and systolic function. Left ventricular ejection fraction is estimated at 64%. There is mild hypokinesis of basal to mid inferolateral and apical lateral horner. Grade I diastolic dysfunction (abnormal relaxation filling pattern), normal to mildly elevated filling pressures. 2. Normal right ventricular size and systolic function. 3. No significant valvular abnormality. 4. No prior similar studies to compare. Georgiana Alejandro MD (Electronically Signed) Final Date: 15 Dec 2019 15:24 S
--- NOTE | 2019-12-15 13:43 | P.PN_ITS ---
Subjective Subjective: Interval history: Patient underwent coronary angiogram this morning with Dr. Bill by right radial approach. 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 Medications: Reviewed: Yes Medication Review Details: Current Medications Acetaminophen (Tylenol) 650 mg PO Q6H PRN PRN Reason: MILD PAIN Last Admin: 12/15/19 00:11 Dose: 650 mg Documented by: Al Hydrox/Mg Hydrox/Simethicone (Maalox) 30 ml PO Q15M PRN PRN Reason: INDIGESTION Alprazolam (Xanax) 0.25 mg PO TID PRN PRN Reason: ANXIETY Aspirin (Aspirin Chewable) 324 mg PO DAILY [facility] Last Admin: 12/15/19 08:48 Dose: 324 mg Documented by: Atorvastatin Calcium (Lipitor) 80 mg PO BEDTIME [facility] Last Admin: 12/14/19 21:48 Dose: 80 mg Documented by: Atropine Sulfate (Atropine) 0.5 mg IVP PRN PRN PRN Reason: Symptomatic bradycardia Hydralazine HCl (Apresoline) 10 mg IVP Q4H PRN PRN Reason: htn Sodium Chloride (Sodium Chloride 0.9%) 1,000 mls @ 60 mls/hr IV .[id number] [facility] Last Admin: 12/14/19 02:39 Dose: 60 mls/hr Documented by: Magnesium Hydroxide (Milk Of Magnesia) 30 ml PO DAILY PRN PRN Reason: CONSTIPATION Metoprolol Tartrate (Lopressor) 12.5 mg PO BID [facility] Last Admin: 12/15/19 08:50 Dose: Not Given Documented by: Morphine Sulfate (Morphine) 2 mg IVP Q4H PRN PRN Reason: SEVERE PAIN Naloxone HCl (Narcan) 0.1 mg IVP Q2M PRN PRN Reason: RESPIRATORY RATE < 8/MIN Nitroglycerin (Nitro-Bid) 1 inch TOPICAL Q6H [facility] Last Admin: 12/15/19 11:46 Dose: Not Given Documented by: Nitroglycerin (Nitrostat) 0.4 mg SUBLINGUAL Q5M PRN PRN Reason: CHEST PAIN Ondansetron HCl (Zofran) 4 mg IVP Q6H PRN PRN Reason: vomiting, or N/V if npo Ondansetron HCl (Zofran) 4 mg IVP Q2M PRN PRN Reason: NAUSEA Temazepam (Restoril) 15 mg PO BEDTIME PRN PRN Reason: INSOMNIA Vitals/I&O/Wt Last Vital Signs Temp 98.0 F 12/15/19 07:51 Pulse 70 12/15/19 13:06 Resp 11 L 12/15/19 07:51 BP 114/82 12/15/19 07:51 Pulse Ox 96 12/15/19 13:06 12/14/19 12/15/19 12/15/19 22:59 06:59 14:59 Intake Total 360 / 1560 Balance 360 / 1060 Weight last 48 hrs Weight 165 lb Physical Exam Const: COMMON NORMALS: no acute distress, average body habitus, patient oriented x3, alert and well nourished GENERAL APPEARANCE: cooperative, comfortable and well developed ORIENTATION/CONSCIOUSNESS: Yes oriented to person, Yes oriented to place and Yes oriented to time HENMT: COMMON NORMALS: normocephalic, atraumatic, hearing grossly normal bilaterally and moist oral mucous membranes HEAD & SCALP: normocephalic and atraumatic Eye: COMMON NORMALS: Equal, round and reactive pupils present, EOMs intact bilaterally and conjunctivae normal CONJUNCTIVA: Yes conjunctivae normal SCLERA: sclerae normal PUPIL: Yes Equal, round and reactive pupils present Neck/C-Spine: COMMON NORMALS: no lymphadenopathy, supple and no JVD; negative for No carotid bruits Resp: COMMON NORMALS: normal respiratory effort, No use of accessory muscles and clear to auscultation bilaterally AUSCULTATION: clear to auscultation bilaterally, no crackles, no rales, no rhonchi and no wheezes Cardio: COMMON NORMALS: no JVD, regular rate, regular rhythm, S1 normal heart sound present, S2 normal heart sound present and Peripheral pulses 2+ throughout; negative for No gallops present (Cardio) and negative for No clicks present (Cardio) JUGULAR VENOUS DISTENTION: no JVD PALPATION: normal PMI, no heave, no palpable S3 and no palpable S4 RATE: regular rate RHYTHM: regular rhythm HEART SOUNDS: S1 normal heart sound present, S2 normal heart sound present, no click, no gallops and no murmurs BRUITS: no carotid bruits PERIPHERAL PULSES: Peripheral pulses 2+ throughout Extremity: COMMON NORMALS: normal to inspection, no clubbing, cyanosis or edema and no calf tenderness Neuro: COMMON NORMALS: patient oriented x3 and no focal motor deficits SENSORIUM/ORIENTATION: Yes alert, Yes oriented to person, Yes oriented to place and Yes oriented to time Psych: THOUGHT CONTENT: Yes Normal thought content present ATTENTION/CONCENTRATION: Yes attention grossly intact MEMORY/COGNITION: Yes memory grossly intact Data : 12/15/19 04:29 12/15/19 04:29 A&P Assessment and plan (1) Unstable angina: Continue aspirin, statin, metoprolol. -Patient underwent coronary angiogram and was found to multivessel CAD (100% chronically occluded Px RCA, hazy Px LM 90 to 95% lesion, Px LCX 90-95% lesion and Px to mid LAD 100% lesion. left to right and right to right collaterals noted). There was significant dampening noted once LM was engaged with chest pain and EKG changes. LVEDP of 40 mm Hg. -Dr. Sandoval is not available presently so given significant lesions and intermittent episodes of chest discomfort will plan to transfer patient to [facility]. -Patient and family agreeabale. Findings of the study were discussed in detail with patient, Kei ( his son) and Tosin (his ). -restart therapeutic lovenox once TR band is off and get echo. -Lasix later this afternoon. -Appreciate Dr. Bill's help in managing the patient. Status: Acute (2) Positive cardiac stress test: Myocardial perfusion imaging with severely decreased tracer uptake in inferior inferolateral, anterolateral, mid anteroseptal inferoseptal and all apical segments. Transient ischemic dilation of 1.38 and left ventricular ejection fraction of 30%. Diffuse hypokinesis of left ventricle. -see above. Status: Acute (3) Hypertension: Status: Acute Qualifiers: Hypertension type: essential hypertension Qualified Code(s): I10 - Essential (primary) hypertension (4) Dyslipidemia: Status: Acute Additional A&P Information Elevated hemoglobin A1c Former smoker Thank you for allowing me to participate in patient's care. Please feel free to call with questions or concerns. Attestations Medical Necessity Statement*: Patient is going to be transferred to [facility] for coronary artery bypass grafting. Coding Level of Care Code Acute Community Affairs Director for [facility] Fwd Exam Comprehensive Diagnoses Unstable angina I20.0 Positive cardiac stress test R94.39 Hypertension I10 Hypertension type: essential hypertension Dyslipidemia E78.5
[2019-12-15] MEDS: heparin drip 25,000 UNIT/500 ML PREMIX 21 UNIT IV (16:16)
[2019-12-15] MEDS: FUROsemide 10 mg/mL SDV 2mL 20 MG IVP (16:16)
[2019-12-15 16:29] LABS: Platelet Count 207 10^3/cmm (130-400)
--- NOTE | 2019-12-15 17:20 | PC.NURSE ---
Report called to Dominique Leal RN at [facility]. Nurse verbalized understanding of transfer information and did not have any further questions.
[2019-12-15] MEDS: metoprolol tartrate 25 mg Tablet 12.5 MG PO (17:36)
--- NOTE | 2019-12-15 17:44 | PM.TDS ---
Transfer Summary Providers Date of Admission: 12/14/19 15:34 Date of Discharge: 12/15/19 Attending Provider at Admission: Easton Pan Attending Provider at Transfer: Liza Leyva MD Primary Care Provider: Danica Martinez DO Anticipated Date of Transfer: Anticipated date of transfer: 12/15/19 Receiving Facility & Provider: Receiving Provider: [facility] Receiving facility: Dr Diggs, Cardiothoracic Surgery Diagnoses at Discharge Discharge Diagnosis (1) Multiple vessel coronary artery disease: Status: Acute Problem details: 100% chronic Px RCA, hazy Px LM 90-95%, Px to mid LAD 100% lesion. Left to right collaterals. LVEDP 40mmHg. (2) Unstable angina: Status: Acute (3) Elevated hemoglobin A1c: Status: Acute (4) Hypertension: Status: Chronic Qualifiers: Hypertension type: essential hypertension Qualified Code(s): I10 - Essential (primary) hypertension (5) Dyslipidemia: Status: Chronic (6) Former smoker: Status: Chronic Problem details: quit early 2019 Other Information Additional DC diagnoses/information: Former smoker Known diagnoses prior to this hospital stay included hypertension and dyslipidemia only Reason for Visit Reason for Visit: Reason For Visit: chest pain Hospital Course Hospital Course: Patient is a pleasant 69-year-old gentleman with a history of hypertension, dyslipidemia and former tobacco use who presented to the emergency room with a pattern suspicious for unstable angina progressing over the preceding 2 weeks. He had gotten to the point that he was having angina at rest. Initial troponins without significant delta and initial EKGs showed some nonspecific changes. No ST elevation was noted. Myocardial perfusion imaging showing a large area of decreased tracer uptake with significant reversibility suggestive of ischemia in multivessel distribution. Despite this patient had no significant EKG changes with Lexiscan infusion. Patient subsequently underwent cardiac catheterization revealing the following: Diagnostic Findings LM: Severe 95% stenosis, KYA: 2 flow. pLAD to mLAD: Severe 100% stenosis, KYA: 0 flow. pCIRC: Severe 95% stenosis, KYA: 2 flow. pRCA to dRCA: Severe 100% stenosis, chronic total occlusion, KYA: 0 flow, high/c lesion. Lat 2nd OM to 2nd SP collateralization. Lat 1st OM to 2nd SP collateralization. pRCA to RPAV collateralization. Coronary angiography shows right dominance. Cardiothoracic surgery is not available here presently. Dr. Alejandro with cardiology discussed with cardiothoracic surgery, Dr. Sanches at [place]. Patient has been accepted on transfer for cardiothoracic intervention as determined. He will be continued on a heparin drip. He has had nitro glycerin in place topically. Other currently active medications and recent administrations are shown below. Physical Exam Const: OTHER: Alert and oriented x3, thin build HENMT: OTHER: Normocephalic, atraumatic, moist mucous membranes Eye: OTHER: Extraocular movements intact, pupils reactive Chest: OTHER: Pectus excavatum Resp: OTHER: Clear to auscultation bilaterally Cardio: OTHER: Regular, right radial intact, TR band removed GI: OTHER: Soft, nontender, positive bowel sounds Extremity: OTHER: Trace edema Neuro: OTHER: Moves all extremities, speech clear, face symmetric Skin: OTHER: Dry, no rashes noted TS Data Data Completed and Pending: Completed Studies During Hospitalization Category Date Time Status OPTICAL STORE MANAGER request for service Routin e Exams 12/15/19 09:50 Completed Sestamibi Stress Test Request Routi ne Exams 12/14/19 07:54 Completed XR chest 1V hilary ble [id number] Stat Exams 12/13/19 21:18 Completed NM lv perf SPECT r/s* [id number] Routin e Nuc Med 12/14/19 07:54 Completed CV echo complete* [id number] Routine Ultrasound 12/15/19 13:36 Completed Labs from last 24 hours 12/15/19 12/15/19 12/15/19 16:24 04:29 04:29 WBC 9.5 RBC 4.66 Hgb 14.6 Hct 43.4 MCV 93.1 MCH 31.3 MCHC 33.6 RDW 12.8 Plt Count 207 220 MPV 10.3 Neut % (Auto) 52.5 Lymph % (Auto) 37.6 [place] % (Auto) 6.7 Eos % (Auto) 1.9 Baso % (Auto) 1.1 Neut # (Auto) 5.0 Lymph # (Auto) 3.6 [place] # (Auto) 0.6 Eos # (Auto) 0.2 Baso # (Auto) 0.1 Nucleated RBC % (a uto) 0 Nucleated RBCs # 0.0 Sodium 140 Potassium 4.5 Chloride 105 Carbon Dioxide 25 Anion Gap 14.5 BUN 16 Creatinine 0.9 GFR Calculation 83.9 L Glucose 102 Calculated Osmolal ity 287 Calcium 9.3 Other Laboratory Tests 12/13/19 12/13/19 12/13/19 21:38 21:38 PT 12.90 INR 0.94 Estimat Average Gl ucose Hemoglobin A1c Phosphorus Magnesium Total Bilirubin 0.2 AST 19 ALT 16 Alkaline Phosphata se 63 Troponin I 6 Hour Troponin I Hi Sens Del Troponin T Baselin e 25 H Troponin T 120 Min [place] Delta Troponin T Total Protein 7.0 Albumin 4.6 Globulin 2.4 Triglycerides Cholesterol LDL Cholesterol, C alc HDL Cholesterol LDL/HDL Ratio Cholesterol/HDL Ra seema 12/13/19 12/14/19 12/14/19 23:26 03:52 03:52 PT INR Estimat Average Gl ucose Hemoglobin A1c Phosphorus 3.7 Magnesium 2.2 Total Bilirubin AST ALT Alkaline Phosphata se Troponin I 6 Hour 32.32 H Troponin I Hi Sens Del 7.32 Troponin T Baselin e Troponin T 120 Min [place] 30.57 H Delta Troponin T 5.57 Total Protein Albumin Globulin Triglycerides Cholesterol LDL Cholesterol, C alc HDL Cholesterol LDL/HDL Ratio Cholesterol/HDL Ra seema 12/14/19 12/14/19 03:52 03:52 PT INR Estimat Average Gl ucose 134 Hemoglobin A1c 6.3 H Phosphorus Magnesium Total Bilirubin AST ALT Alkaline Phosphata se Troponin I 6 Hour Troponin I Hi Sens Del Troponin T Baselin e Troponin T 120 Min [place] Delta Troponin T Total Protein Albumin Globulin Triglycerides 122 Cholesterol 178 LDL Cholesterol, C alc 105 HDL Cholesterol 49 L LDL/HDL Ratio 2.14 Cholesterol/HDL Ra seema 3.63 Imaging^: Lexiscan sestamibi MPI (12/14/19): Radiologist's impression: PROCEDURE: At the baseline, the blood pressure was 153/83 mmHg, oxygen saturation 99% with a heart rate of 77 bpm. The electrocardiogram showed normal sinus rhythm, normal axis with nonspecific ST-T wave abnormality in lead III, aVF, V4 to V6. The Lexiscan was infused over a period of 20 seconds. A total of 0.4 milligrams of Lexiscan was infused. The stress phase was continued for a total of 5 minutes. Heart rate at the end of the stress phase was 97 bpm, oxygen saturation 99% with a blood pressure 151/81 mmHg. The EKG at the peak infusion revealed sinus rhythm. T wave is noted to be upright during infusion and at peak stress. Sestamibi was injected 20 seconds after the Lexiscan infusion. Blood pressure at the end of the recovery phase was 147/83 mmHg, oxygen saturation 99% with a heart rate of 87 beats per minute. CONCLUSION: 1. No significant EKG changes with the LexiScan infusion. 2. No LexiScan induced chest pain or cardiac arrhythmia. 3. Normal blood pressure and heart rate response. 4. Sestamibi/sestamibi perfusion scan pending; see separate report. CXR: Radiologist's impression: IMPRESSION: Chronic emphysema. No pneumonia. Echo: Radiologist's impression: Echocardiogram 1. Normal left ventricular cavity size.and systolic function. Left ventricular ejection fraction is estimated at 64%. There is mild hypokinesis of basal to mid inferolateral and apical lateral horner. Grade I diastolic dysfunction (abnormal relaxation filling pattern), normal to mildly elevated filling pressures. 2. Normal right ventricular size and systolic function. 3. No significant valvular abnormality. 4. No prior similar studies to compare. Myocardial perfusion : Radiologist's impression: SPECT RESULTS Technical Quality: Good Raw Data Analysis: Subdiaphragmatic activity Image Corrections: No attenuation or motion correction applied Summed Stress Score: 37 Summed Rest Score: 22 Summed Difference Score: 16 PERFUSION FINDINGS Large area of severely decreased tracer uptake was noted in the inferior, inferolateral, anterolateral and all the apical segments. Moderate area decreased tracer uptake was noted in the mid anteroseptal and inferoseptal segments. Significant areas of reversibility was noted in all the segments. FUNCTIONAL RESULTS (calculated via Gated SPECT) Stress Image LV EF (%): 30 Stress EDV (mL):152 TID: 1.38 Stress ESV (mL):107 FUNCTIONAL FINDINGS: Segmental wall motion analysis revealed diffuse hypokinesia of the left ventricle. IMPRESSIONS 1. Myocardial perfusion imaging revealing large areas of severely decreased tracer uptake with significant reversibility, suggestive of ischemia in the distribution of all the 3 coronary arteries. 2. Diminished LV ejection fraction of 30%. 3. Multiple wall motion abnormalities as mentioned above 4. Moderately dilated LV cavity with an end systolic volume of 107 mL 5. Elevated transient ischemic dilatation ratio also is suggestive of endocardial ischemia Vitals: Last Vital Signs Temp 98.0 F 12/15/19 07:51 Pulse 64 12/15/19 15:30 Resp 10 L 12/15/19 15:30 BP 133/76 12/15/19 15:30 Pulse Ox 96 12/15/19 15:30 TS Medications Medications Home Medications atorvastatin 10 mg PO BEDTIME 12/13/19 [History Confirmed 12/14/19] lisinopril 10 mg PO BEDTIME 12/13/19 [History Confirmed 12/14/19] Active Medications Acetaminophen (Tylenol) 650 mg PO Q6H PRN PRN Reason: MILD PAIN Last Admin: 12/15/19 00:11 Dose: 650 mg Al Hydrox/Mg Hydrox/Simethicone (Maalox) 30 ml PO Q15M PRN PRN Reason: INDIGESTION Alprazolam (Xanax) 0.25 mg PO TID PRN PRN Reason: ANXIETY Aspirin (Aspirin Chewable) 324 mg PO DAILY [facility] Last Admin: 12/15/19 08:48 Dose: 324 mg Atorvastatin Calcium (Lipitor) 80 mg PO BEDTIME [facility] Last Admin: 12/14/19 21:48 Dose: 80 mg Atropine Sulfate (Atropine) 0.5 mg IVP PRN PRN PRN Reason: Symptomatic bradycardia Heparin Sodium (Beef Lung) (Heparin) 0 unit IV PRN PRN; Protocol PRN Reason: Heparin weight-base protocol Hydralazine HCl (Apresoline) 10 mg IVP Q4H PRN PRN Reason: htn Sodium Chloride (Sodium Chloride 0.9%) 1,000 mls @ 60 mls/hr IV .[id number] [facility] Last Admin: 12/15/19 15:58 Dose: Not Given (had been on saline prior to procedure and got 250 ml after cath with fluids stopperd at 14:45 Lasix 20mg IV 16:15 x one Heparin Sodium/Sodium Chloride (Heparin Drip) 25,000 unit in 500 mls @ 0 mls/hr IV .Q0M [facility]; Protocol Last Admin: 12/15/19 16:16 (initiation time for drip) Dose: 14.03 unit/kg/hr, 21 mls/hr Magnesium Hydroxide (Milk Of Magnesia) 30 ml PO DAILY PRN PRN Reason: CONSTIPATION Metoprolol Tartrate (Lopressor) 12.5 mg PO BID [facility] Last Admin: 12/15/19 17:36 Dose: 12.5 mg Morphine Sulfate (Morphine) 2 mg IVP Q4H PRN PRN Reason: SEVERE PAIN Last dose: ~11:30/am 12/15/19 Naloxone HCl (Narcan) 0.1 mg IVP Q2M PRN PRN Reason: RESPIRATORY RATE < 8/MIN Nitroglycerin (Nitro-Bid) 1 inch TOPICAL Q6H [facility] Last Admin: 12/15/19 17:36 Dose: 1 inch Nitroglycerin (Nitrostat) 0.4 mg SUBLINGUAL Q5M PRN PRN Reason: CHEST PAIN Ondansetron HCl (Zofran) 4 mg IVP Q6H PRN PRN Reason: vomiting, or N/V if npo Ondansetron HCl (Zofran) 4 mg IVP Q2M PRN PRN Reason: NAUSEA Temazepam (Restoril) 15 mg PO BEDTIME PRN PRN Reason: INSOMNIA Discharge Plan Discharge Patient Disposition: Xfer Short-Term Hosp Condition: Stable Prescriptions: No Action atorvastatin 10 mg tablet 10 mg PO BEDTIME RF: 0 lisinopril 10 mg tablet 10 mg PO BEDTIME RF: 0 Discharge Orders: Discharge Order (Routine); Ordered 12/15/19 Ordered By: Liza Leyva Referrals: Danica Martinez DO [Primary Care Provider] - Georgiana Alejandro MD [Physician] - Transfer Attestations Time Spent in Transfer Care*: greater than 30 min Specific Discharge Activities: Specific discharge activities: educating patient, discussing with pcp/other providers and documenting/other paperwork Status at Transfer: Cognitive status at transfer: cognitively intact, Behavioral status at transfer: cooperative, Functional status at transfer: independent ambulation Quality Metrics Clinical Quality Measures: During this hospital stay, did patient experience: None Coding Level of Care Code Acute Mortgage Loan Originator for [employer] Fwd Diagnoses Multiple vessel coronary artery disease I25.10 Unstable angina I20.0 Elevated hemoglobin A1c R73.09 Hypertension I10 Hypertension type: essential hypertension Dyslipidemia E78.5 Former smoker Z87.891
--- NOTE | 2019-12-15 17:55 | PC.NURSE ---
TR band off at 1750. 16 ml of air removed. Dressing applied. Incision asymptomatic. Neurovascular checks appropriate. Patient tolerated well. Nurse to continue to monitor. TR band that was applied to hematoma was removed at 1545. Site marked, soft to touch. Nurse to continue to monitor.
--- NOTE | 2019-12-15 19:05 | PC.NURSE ---
Patient transported to [facility] by [facility]. notified.
== END 2019-12-15 19:05 | disposition short-term general hospital (02) | DRG 287 ==
LOC: ER 22:32 → MEDSURG 12-14 01:19 → CSU 12-14 19:56
PROVIDERS: Emergency Medicine; Internal Medicine Cardiovascular Disease; Admitting Provider Internal Medicine; Emergency Provider Nurse Practitioner Family; PCP Family Medicine; Visit Provider Hospitalist
PROC: 4A023N7 Measurement of Cardiac Sampling and Pressure, Left Heart, Percutaneous Approach (ICD-10-PCS; principal; 2019-12-15 09:00)
DX: I25.110 Atherosclerotic heart disease of native coronary artery with unstable angina pectoris (principal); I24.9 Acute ischemic heart disease, unspecified; I12.9 Hypertensive chronic kidney disease with stage 1 through stage 4 chronic kidney disease, or unspecified chronic kidney disease; N18.2 Chronic kidney disease, stage 2 (mild); E78.5 Hyperlipidemia, unspecified; Z87.891 Personal history of nicotine dependence
CPT/HCPCS: 12345; 36415; 71045; 78452; 80048; 80053; 80061; 83036; 83735; 84100; 84484; 85025; 85049; 85610; 93005; 93017; 93306; 93452; 96372; 96375; 99282; A9500; C1769; C1887; C1894; G0378; J1644; J1650; J1940; J2001; J2250; J2270; J2405; J2785; J3010; J3490; J7030; Q0163; Q9967

== ENCOUNTER 2020-04-24 09:42 | Outpatient (CLI) | payer MEDICARE, SELFPAY ==
--- NOTE | 2020-04-24 10:15 | USCV_ITS ---
Rudolph Card Age: 70 Gender: M : 1950 Exam Date: 04/24/2020 10:10 Ordering Phys: Georgiana Alejandro MD ([email or web address]) Technologist: Ronna Victor Exam Location: [facility] [place] Indication: BP: 120 / 57 HR: 73 Rhythm: Sinus Technical Quality: Adequate MEASUREMENTS (Male / Female) Normal Values 2D ECHO LV Diastolic Diameter PLAX 4.3 cm 4.2 - 5.9 / 3.9 - 5.3 cm LV Systolic Diameter PLAX 2.9 cm LV Chamber Size 3.6 cm IVS Diastolic Thickness 1.3 cm 0.6 - 1.0 / 0.6 - 0.9 cm IVS Systolic Thickness 1.7 cm LVPW Diastolic Thickness 1.5 cm 0.6 - 1.0 / 0.6 - 0.9 cm LVPW Systolic Thickness 1.7 cm RV Chamber Size 3.6 cm LVOT Diameter 2.0 cm LV Ejection Fraction 2D Teich 62.0 % LV Ejection Fraction MOD 2C 49.9 % LV Ejection Fraction 2C AL 51.1 % LA Diameter 3.4 cm LA Width 3.3 cm LA Height 4.5 cm RA Width 3.8 cm RA Height 4.3 cm Aorta at Sinotubular Diameter 3.4 cm M-MODE LV Diastolic Diameter MM 4.9 cm 4.2 - 5.9 / 3.9 - 5.3 cm LV Systolic Diameter MM 3.0 cm LV Ejection Fraction MM Teich 68.1 % IVS Diastolic Thickness MM 0.9 cm 0.6 - 1.0 / 0.6 - 0.9 cm IVS Systolic Thickness MM 1.5 cm LVPW Diastolic Thickness MM 1.3 cm 0.6 - 1.0 / 0.6 - 0.9 cm LVPW Systolic Thickness MM 1.9 cm RV Diastolic Diameter MM 1.1 cm Aortic Annulus Diameter 3.5 cm LA Ao Ratio MM 1.0 MV E Point Septal Separation 0.6 cm FINDINGS Left Ventricle Normal left ventricular cavity size. Mildly decreased left ventricular systolic function. Left ventricular ejection fraction is estimated at 50 %. There is mild hypokinesis of basal to mid inferoseptal, moderate hypokinesis of apical septal and apical anterior horner. Right Ventricle Normal right ventricular size and systolic function. Right Atrium Normal right atrial size. Left Atrium Normal left atrial size. Mitral Valve Mildly thickened mitral valve. No mitral valve stenosis. Aortic Valve Trileaflet aortic valve. No aortic valve stenosis. No significant aortic valve regurgitation. Tricuspid Valve Structurally normal tricuspid valve. Trace tricuspid valve regurgitation. Pulmonic Valve Pulmonic valve not well visualized. No pulmonary valve stenosis. Trace pulmonary valve regurgitation. Pericardium No pericardial effusion. Aorta Upper normal aortic root. Normal sized ascending aorta. CONCLUSIONS 1. Normal left ventricular cavity size. Mildly decreased left ventricular systolic function. Left ventricular ejection fraction is estimated at 50 %. There is mild hypokinesis of basal to mid inferoseptal, moderate hypokinesis of apical septal and apical anterior horner. 2. No significant valvular abnormality. 3. When compared to echocardiogram dated 12/15/2019, left ventricular systolic function has slightly decreased. Georgiana Alejandro MD (Electronically Signed) Final Date: 26 April 2020 08:26 S
== END 2020-04-24 09:43 | disposition home or self-care (01) ==
LOC: US 09:44
PROVIDERS: PCP Family Medicine; Visit Provider Internal Medicine Cardiovascular Disease
DX: I50.9 Heart failure, unspecified (principal)
CPT/HCPCS: 93308

== ENCOUNTER 2021-02-17 10:24 | Outpatient (CLI) | payer MEDICARE, SELFPAY ==
--- NOTE | 2021-02-17 10:37 | USCV_ITS ---
Rudolph Card Age: 71 Gender: M : 1950 Exam Date: 02/17/2021 10:47 Ordering Phys: Otilia Dumas MD Technologist: Ronna Victor [place] [facility] [place] LCEA 2 YEARS AGO Risk Factors: Unknown Previous Vascular Surgery: L CEA, CABG Right Brachial BP: / Left Brachial BP: / Right Left Velocity (cm/s) Spectral Plaque Velocity (cm/s) Spectral Plaque Syst/Diast Broadening Syst/Diast Broadening 62.80/ 19.80 Prox CCA 66.20 / 18.30 62.80/ 24.30 Mid CCA 53.50 / 17.80 42.70/ 13.10 Hetro Distal CCA 62.80 / 18.50 59.90/ 21.40 Hetro Prox ICA 67.80 / 19.20 51.70/ 18.90 Mid ICA 71.90 / 26.30 55.50/ 24.00 Distal ICA 96.20 / 30.40 67.85 Hetro ECA 112.70 1.13 ICA/CCA 1.80 Antegrade Vertebral Antegrade 63.10/ 25.20 cm/s 40.60/ 12.10 cm/s Tri Subclavian Tri 59.90 57.10 FINDINGS Comparison: none available. No significant elevation of systolic or diastolic velocities. Possible duplicated or tortuous right common carotid artery. Mixture of calcified and noncalcified plaque in the bifurcations. Antegrade vertebral arteries. CONCLUSIONS Bilateral ICA stenosis less than 50%. Mild carotid atherosclerosis. Dr. Jordana Ignacio DO (Electronically Signed) Final Date: 17 February 2021 11:43 S
== END 2021-02-17 10:25 | disposition home or self-care (01) ==
PROVIDERS: PCP Family Medicine; Visit Provider Surgery Vascular Surgery
DX: I65.23 Occlusion and stenosis of bilateral carotid arteries (principal); Z95.1 Presence of aortocoronary bypass graft
CPT/HCPCS: 93880